=== PATIENT | female | born 1970 | race Two or more races ===

== ENCOUNTER 2019-01-29 11:10 | Emergency (ER) | payer OTHER ==
[~2019-01-29] VITALS: Ht 152.4 cm; Wt 72.6 kg
[~2019-01-29 11:10] MED LIST: ATEN-60; TRIA50CA38
[2019-01-29 12:05] VITALS: BP 131/64
[2019-01-29 12:32] LABS: Basophils # (auto) 0.1 uL; Basophils % (auto) 0.7 % (0.0-2.0); Eosinophils # (auto) 0.5 uL; Eosinophils % (auto) 5.3 % (0.0-7.0); Hematocrit 36.8 % (36.0-46.0); Lymphocytes # (auto) 1.8 uL; Lymphocytes % (auto) 17.3 % (10.0-50.0); Mean Corpuscular Hemoglobin 28.1 pg (28.0-32.0); Mean Corpuscular Hgb Conc. 32.6 g/dL (32.0-36.0); Mean Corpuscular Volume 86.2 fL (80.0-100.0); Monocytes # (auto) 0.4 uL; Monocytes % (auto) 4.2 % (0.0-12.0); Neutrophils # (auto) 7.5 uL; Neutrophils % (auto) 72.5 % (37.0-80.0); Platelet Count (auto) 438 10^3/uL (140-450); Red Blood Cells 4.27 10^6/uL (4.0-5.20); White Blood Cell 10.3 10^3/uL (4.4-10.8)
[2019-01-29 12:54] LABS: Urine Amorphous Crystal FEW /hpf (None Seen); Urine Bacteria NONE SEEN /hpf (None Seen); Urine Blood Negative /uL (Negative); Urine Budding Yeast OCCASIONAL /hpf (None Seen); Urine Hyaline Cast MOD /lpf (0 - 2); Urine Mucus FEW (None Seen); Urine Specific Gravity 1.022 (1.001-1.035); Urine WBC 31 /hpf (0 - 5)
[2019-01-29 13:01] LABS: Calcium 9.5 mg/dL (8.5-10.1); Potassium 3.5 mmol/L (3.5-5.1)
[2019-01-29] MEDS ORDERED: cefTRIAXone 1GM/50ML D5W 50 ML IV ONE (13:30)
[2019-01-29] MEDS ORDERED: cefTRIAXone W LIDOCAINE 1 GM IM IM ONE (13:45)
[2019-01-29] MEDS ORDERED: cefTRIAXone SOD 1,000 MG VL ONE (14:02)
[2019-01-29] MEDS ORDERED: cefTRIAXone SOD 1,000 MG VL IM ONE (14:15)
== END 2019-01-29 14:30 | disposition home or self-care (01) ==
LOC: ER 11:16 → EEVIPCON 11:16 → ER 14:30
DX: I67.1 Cerebral aneurysm, nonruptured (principal); N39.0 Urinary tract infection, site not specified; I10 Essential (primary) hypertension; R51 Headache; Z90.49 Acquired absence of other specified parts of digestive tract
CPT/HCPCS: 36415; 80048; 81001; 85025; 96372; 99283; J0696

== ENCOUNTER 2022-12-23 06:43 | Day surgery (SDC) | payer BC ==
[2022-12-15 11:21] LABS: Basophils # (auto) 0 10 ^3/uL (0-0.2); Basophils % (auto) 0.7 % (0.0-2.0); Eosinophils # (auto) 0.7 10 ^3/uL (0-0.8); Hematocrit 36.6 % (36.0-46.0); Hemoglobin 11.9 g/dL (12.2-16.2); Lymphocytes # (auto) 1.5 10 ^3/uL (0.4-5.4); Lymphocytes % (auto) 25.5 % (10.0-50.0); Mean Corpuscular Hemoglobin 28.9 pg (28.0-32.0); Mean Corpuscular Hgb Conc. 32.4 g/dL (32.0-36.0); Mean Corpuscular Volume 89.3 fL (80.0-100.0); Monocytes # (auto) 0.4 10 ^3/uL (0-1.3); Monocytes % (auto) 6.5 % (0.0-12.0); Neutrophils # (auto) 3.4 10 ^3/uL (1.6-8.6); Neutrophils % (auto) 56.3 % (37.0-80.0); Nucleated Red Blood Cells % 0.1 %; Red Cell Distribution Width 13.6 % (11.8-14.3); White Blood Cell 6.1 10^3/uL (4.4-10.8)
[2022-12-15 11:40] LABS: Calcium 9.8 mg/dL (8.5-10.1); Potassium 3.9 mmol/L (3.5-5.1)
[2022-12-15 11:43] LABS: BUN/Creatinine Ratio 28.7 (10.0-20.0)
[2022-12-15 11:47] LABS: INR 0.96 (0.9-1.15); Partial Thromboplastin Time 27.1 SEC (24.5-34.5)
[2022-12-15 11:54] LABS: Urine Bacteria NONE SEEN /hpf (None Seen); Urine Blood Negative /uL (Negative); Urine Specific Gravity 1.026 (1.001-1.035); Urine WBC 17 /hpf (0 - 5)
[~2022-12-23] VITALS: Ht 154.9 cm; Wt 62.1 kg
[2022-12-23] VITALS (7 sets, daily range): BP systolic 108–125; BP diastolic 70–93; PULSE 70–82; RESP 12–20; TEMP 97.7; O2SAT 99–100
[~2022-12-23 06:43] MED LIST changes: +TRIA1CAP5; -TRIA50CA38
[2022-12-23] MEDS ORDERED: ASPI1TAB20 PO (07:42)
[2022-12-23] MEDS ORDERED: POM PO (07:42)
[2022-12-23] MEDS ORDERED: ATO40T PO (07:43)
[2022-12-23] MEDS ORDERED: CETI-176 PO (07:45)
[2022-12-23] MEDS ORDERED: IODIXANOL 320MG/ML 100ML BTL IV ONE (07:56)
[2022-12-23] MEDS ORDERED: IOHEXOL 350 MG/ML 100ML IJ ONE (07:56)
[2022-12-23] MEDS ORDERED: LIDOCAINE 2%HCL (LOCAL ANESTH.) INJ 20ML MDV ONE (07:56)
[2022-12-23] MEDS ORDERED: fentaNYL CITRATE 100 MCG/2 ML VL ONE (08:18)
[2022-12-23] MEDS ORDERED: MIDAZOLAM HCL 2MG/2ML 2ml VIAL (1mg/ml) ONE (08:18)
[2022-12-23] MEDS ORDERED: HEPARIN SODIUM (PORCINE) 5000 UNITS/ML 1ML VIAL ONE (08:18)
[2022-12-23] MEDS ORDERED: VERAPAMIL 2.5MG/ML INJ 2ML VIAL IV ONE (08:18)
[2022-12-23 08:38] LABS: INR 0.98 (0.9-1.15)
== END 2022-12-23 11:10 | disposition home or self-care (01) ==
LOC: CATH 06:43
PROVIDERS: ATTEND Internal Medicine Cardiovascular Disease
DX: R94.39 Abnormal result of other cardiovascular function study (principal); I10 Essential (primary) hypertension; E78.00 Pure hypercholesterolemia, unspecified; Z80.0 Family history of malignant neoplasm of digestive organs; Z82.49 Family history of ischemic heart disease and other diseases of the circulatory system; Z88.2 Allergy status to sulfonamides; Z88.5 Allergy status to narcotic agent; Z79.82 Long term (current) use of aspirin; Z72.89 Other problems related to lifestyle; Z79.899 Other long term (current) drug therapy
CPT/HCPCS: 36415; 80048; 81001; 85025; 85610; 85730; 93458; C1725; C1894; J1644; J2250; J3010; Q9967; 99152